=== PATIENT | male | born 1950 | race Caucasian/White ===

== ENCOUNTER → 2016-08-27 | Outpatient (CLI) | payer MEDICARE, OTHER | END | disposition home or self-care (01) | LOC: CFH 10:32 | PROVIDERS: ATTEND Internal Medicine | DX: Z12.2 Encounter for screening for malignant neoplasm of respiratory organs (principal); I25.10 Atherosclerotic heart disease of native coronary artery without angina pectoris; Z72.0 Tobacco use; Z87.891 Personal history of nicotine dependence | CPT/HCPCS: G0297 ==

== ENCOUNTER 2018-06-04 09:29 | Emergency (ER) | payer MEDICARE, OTHER ==
[~2018-06-04] VITALS: Ht 170.2 cm; Wt 86.0 kg
--- NOTE | 2018-06-04 09:39 | NUR ---
PT TO THE LOBBY TO WAIT FOR ROOM ASSIGNMENT. VSS. PT IS AMBULATORY WITHOUT ASSIST AND SPEAKING IN FULL SENTENCES, ABLE TO CLEAR HIS OWN SECRETIONS.
--- NOTE | 2018-06-04 09:54 | NUR ---
Pt presents for being unable to swallow since eating chicken at dinner last night. Pt states had similar episode ~1 year ago but resolved after several hours. Pt denies SOB. NAD at this time.
[2018-06-04] MEDS ORDERED: PROPOFOL 10 MG/ML, 20ML IVP ONE (10:00)
[2018-06-04] MEDS ORDERED: SODIUM CHLORIDE FLUSH 10ML SYR IVF ONE (10:00)
--- NOTE | 2018-06-04 10:04 | NUR ---
lm for dr maradiaga with [facility] to call dr javed. spoke with umang in endo and made her aware of pt.
--- NOTE | 2018-06-04 10:09 | NUR ---
dr maradiaga returned call to dr javed
--- NOTE | 2018-06-04 10:10 | NUR ---
called [facility]ie and spoke with umang to make her aware that dr maradiaga will be in in about an hour to scope.
[2018-06-04] MEDS ORDERED: MIDAZOLAM 1 MG/ML, 5ML ONE (10:45)
[2018-06-04] MEDS ORDERED: FENTANYL PF 100 MCG/2ML ONE (10:45)
--- NOTE | 2018-06-04 11:00 | NUR ---
ASSUMED CARE OF PT FROM [facility]GL[facility] SARKAR. PT MOVED FROM ROOM 28 TO TRAUMA 3 FOR PROCEDURAL SEDATION. PLEASE REFER TO PROCEDURAL SEDATION PACKET FOR NTES AND VITALS.
[2018-06-04] MEDS ORDERED: PROPOFOL 10 MG/ML, 20ML ONE (11:02)
[2018-06-04 12:59] VITALS: BP 135/75
== END 2018-06-04 13:02 | disposition home or self-care (01) ==
LOC: ED 10:30
DX: T18.128A Food in esophagus causing other injury, initial encounter (principal); E78.00 Pure hypercholesterolemia, unspecified; I10 Essential (primary) hypertension; E11.9 Type 2 diabetes mellitus without complications; X58.XXXA Exposure to other specified factors, initial encounter; Y93.89 Activity, other specified; Y92.89 Other specified places as the place of occurrence of the external cause; Y99.8 Other external cause status
CPT/HCPCS: 88305; 88342; 99152; 99285; J2250; J3010

== ENCOUNTER 2019-07-01 13:38 | Inpatient (IN) | payer MEDICARE, OTHER ==
[~2019-07-01] VITALS: Ht 170.2 cm; Wt 87.8 kg
[2019-07-01 14:28] LABS: ALBUMIN 3.8 g/dL (3.4-5.0); ANION GAP 12 mmol/L (5-15); CALCIUM 9.2 mg/dL (8.5-10.1); CHLORIDE 102 mmol/L (98-107)
--- NOTE | 2019-07-01 14:33 | NUR ---
PT AMBULATORY TO RADIOLOGY. NAD. WILL RETURN TO T1 AFTER SCAN.
[2019-07-01 14:34] LABS: ALANINE AMINOTRANSFERASE 56 U/L (12-78); ALKALINE PHOSPHATASE 82 U/L (45-117); BILIRUBIN,TOTAL 0.5 mg/dL (0.2-1.0); CREATININE 1.81 mg/dL (0.7-1.3); TOTAL PROTEIN 7.8 g/dL (6.4-8.2)
[2019-07-01 14:38] LABS: MICROSCOPIC AUTO
[2019-07-01 14:39] LABS: CULTURE INDICATED? NO
--- NOTE | 2019-07-01 14:55 | NUR ---
PT CAME IN CO OF LEFT FLANK PAIN. DENIES TRAUMA. STARTED AROUND [address] BLOOD DRAWN. PT RESTING IN [facility]
[2019-07-01 14:58] LABS: MEAN CORPUSCULAR HEMOGLOBIN 31.1 pg (27.5-34.5); MEAN CORPUSCULAR HGB CONC 33.7 g/dL (33.2-36.2); MEAN CORPUSCULAR VOLUME 92.4 fL (81-97); MEAN PLATELET VOLUME 8.3 fL (7.4-10.4); PLATELET COUNT 178 x10^3/uL (130-400); RED BLOOD COUNT 4.74 x10^6/uL (4.38-5.82); RED CELL DISTRIBUTION WIDTH 14.2 % (9.4-14.8)
[2019-07-01 14:59] LABS: BASOPHILS % (AUTO) 0 % (0-1); EOSINOPHILS # (AUTO) 0.15 x10^3/uL (0-0.4); EOSINOPHILS % (AUTO) 1 % (1-7); LYMPHOCYTES # (AUTO) 1.39 x10^3/uL (1-3.4); LYMPHOCYTES % (AUTO) 9 % (22-44); MD SCAN; MONOCYTES # (AUTO) 0.41 x10^3/uL (0.2-0.8); MONOCYTES % (AUTO) 3 % (2-9); NEUTROPHILS % (AUTO) 88 % (42-75)
[2019-07-01] MEDS ORDERED: ONDANSETRON 2MG/ML, 2ML ONE (15:15)
[2019-07-01] MEDS ORDERED: KETOROLAC 30 MG/1 ML ONE (15:15)
[2019-07-01] MEDS ORDERED: MORPHINE SULFATE 4 MG/ML, 1ML ONE (15:16)
[2019-07-01] MEDS ORDERED: KETOROLAC 30 MG/1 ML IVPush ONE (15:30)
[2019-07-01] MEDS ORDERED: MORPHINE SULFATE 4 MG/ML, 1ML IVPush PRN (15:30)
[2019-07-01] MEDS ORDERED: ONDANSETRON 2MG/ML, 2ML IVPush ONE (15:30)
--- NOTE | 2019-07-01 15:55 | NUR ---
PT REPORTS "FEELING A LOT BETTER" IN REGARDS TO PAIN
[2019-07-01] MEDS ORDERED: KETOROLAC 30 MG/1 ML IM ONE (16:30)
[2019-07-01] MEDS ORDERED: SODIUM CHLORIDE 0.9% 1,000 ML IV ONE (16:38)
[2019-07-01] MEDS ORDERED: ONDANSETRON 2MG/ML, 2ML IVPush PRN (17:00)
[2019-07-01] MEDS ORDERED: HYDROmorphone 1 MG/ML, 1ML INJ IVPush PRN (17:00)
[2019-07-01] MEDS ORDERED: SODIUM CHLORIDE FLUSH 10ML SYR IVF PRN (17:00)
--- NOTE | 2019-07-01 17:06 | NUR ---
PT RESTING IN [facility]. AWAITING ADM ORDERED
[2019-07-01 18:03] VITALS: BP 161/78
[2019-07-01] MEDS ORDERED: POLYETHYLENE GLYCOL 17 GM PACKET PO PRN (18:30)
[2019-07-01] MEDS ORDERED: BISACODYL 10 MG SUPP PR PRN (18:30)
[2019-07-01] MEDS ORDERED: DOCUSATE 100 MG CAPSULE PO PRN (18:30)
[2019-07-01] MEDS ORDERED: ACETAMINOPHEN 325 MG TABLET PO PRN (18:30)
[2019-07-01] MEDS ORDERED: KETOROLAC 30 MG/1 ML IV PRN (18:30)
[2019-07-01] MEDS: SODIUM CHLORIDE 0.9% 1,000 ML IV SCH (18:46)
[2019-07-01] MEDS ORDERED: DEXTROSE 4 GM TAB.CHEW PO PRN (19:00)
[2019-07-01] MEDS ORDERED: DEXTROSE 50%, 50ML SYRINGE IVPush PRN (19:00)
[2019-07-01] MEDS ORDERED: GLUCAGON 1 MG IM PRN (19:00)
[2019-07-01] MEDS: SODIUM CHLORIDE FLUSH 10ML SYR IVF SCH (21:00)
[2019-07-01 21:39] VITALS: BP 118/74
[2019-07-01] MEDS: morphine SULFATE 10 MG/ML, 1ML IVPush PRN (22:06)
[2019-07-01] MEDS: ONDANSETRON 2MG/ML, 2ML IVPush PRN (22:06)
[2019-07-01] MEDS: INSULIN LISPRO 100 UNITS/ML, PEN SQ-INSULIN SCH (22:07)
[2019-07-02 01:59] VITALS: BP 117/75
[2019-07-02 06:40] LABS: BASOPHILS # (AUTO) 0.03 x10^3/uL (0-0.1); BASOPHILS % (AUTO) 0 % (0-1); EOSINOPHILS % (AUTO) 8 % (1-7); LYMPHOCYTES # (AUTO) 3.12 x10^3/uL (1-3.4); LYMPHOCYTES % (AUTO) 29 % (22-44); MD NO; MEAN CORPUSCULAR VOLUME 93.8 fL (81-97); MEAN PLATELET VOLUME 7.4 fL (7.4-10.4); MONOCYTES # (AUTO) 0.75 x10^3/uL (0.2-0.8); MONOCYTES % (AUTO) 7 % (2-9); NEUTROPHILS # (AUTO) 6.12 x10^3/uL (1.8-6.8); NEUTROPHILS % (AUTO) 56 % (42-75); PLATELET COUNT 200 x10^3/uL (130-400); RED BLOOD COUNT 4.16 x10^6/uL (4.38-5.82); RED CELL DISTRIBUTION WIDTH 14.4 % (9.4-14.8)
[2019-07-02 06:48] LABS: ANION GAP 6 mmol/L (5-15); CALCIUM 8.3 mg/dL (8.5-10.1); CHLORIDE 106 mmol/L (98-107); CREATININE 1.76 mg/dL (0.7-1.3)
[2019-07-02] MEDS ORDERED: PRED5TAB19 PO (06:48)
[2019-07-02] MEDS ORDERED: ABAT125S INJ (06:57)
[2019-07-02] MEDS ORDERED: LISI-420 PO (06:58)
[2019-07-02] MEDS ORDERED: [UNRECOGNIZED DRUG - CODE] PO (06:59)
[2019-07-02] MEDS: INSULIN LISPRO 100 UNITS/ML, PEN SQ-INSULIN SCH ×4 (07:00→22:41)
[2019-07-02] MEDS ORDERED: ATOR20TA86 PO (07:00)
[2019-07-02] MEDS ORDERED: TAMS-11 PO (07:00)
[2019-07-02] MEDS ORDERED: METF500S5 PO (07:00)
[2019-07-02] MEDS ORDERED: TRAM100C3 PO (07:02)
[2019-07-02] MEDS ORDERED: [UNRECOGNIZED DRUG - CODE] PO (07:02)
[2019-07-02] MEDS ORDERED: MELO10PO PO (07:03)
[2019-07-02] MEDS ORDERED: LEVO1CAP3 PO (07:03)
[2019-07-02] MEDS ORDERED: PANT40GR PEG (07:04)
[2019-07-02] MEDS ORDERED: METH1POW21 PO (07:05)
[2019-07-02 08:28] VITALS: BP 102/70
[2019-07-02] MEDS: SODIUM CHLORIDE 0.9% 1,000 ML IV SCH (08:41)
[2019-07-02] MEDS: morphine SULFATE 10 MG/ML, 1ML IVPush PRN (08:42)
[2019-07-02] MEDS: AMLODIPINE 5 MG TABLET PO SCH (08:42)
[2019-07-02] MEDS: SODIUM CHLORIDE FLUSH 10ML SYR IVF SCH ×2 (08:48→20:23)
[2019-07-02] MEDS ORDERED: LISINOPRIL 20 MG TABLET PO SCH (09:00)
[2019-07-02] MEDS ORDERED: EPHEDRINE 50 MG/ML, 1ML ONE (10:36)
[2019-07-02 12:58] VITALS: BP 106/69
[2019-07-02] MEDS ORDERED: FENTANYL PF 250 MCG/5ML ONE (15:23)
[2019-07-02] MEDS ORDERED: MIDAZOLAM 1 MG/ML, 2ML ONE (15:23)
[2019-07-02] MEDS ORDERED: DEXAMETHASONE 4 MG/ML, 1ML ONE (15:25)
[2019-07-02] MEDS ORDERED: PROPOFOL 10 MG/ML, 20ML ONE (15:25)
[2019-07-02] MEDS ORDERED: ROCURONIUM 10MG/ML,5ML ONE (15:25)
[2019-07-02] MEDS ORDERED: SUCCINYLCHOLINE 20 MG/ML, 10ML ONE (15:25)
[2019-07-02] MEDS ORDERED: LABETALOL 5MG/ML, 20ML IV PRN (16:00)
[2019-07-02] MEDS ORDERED: ALBUTEROL SULFATE 2.5 MG/3 ML NPPB PRN (16:00)
[2019-07-02] MEDS ORDERED: DIAZEPAM 5 MG/ML, 2ML IVPush PRN (16:00)
[2019-07-02] MEDS ORDERED: ONDANSETRON ODT 8 MG PO PRN (16:00)
[2019-07-02] MEDS ORDERED: ONDANSETRON 2MG/ML, 2ML IV PRN ×2 (16:00→19:30)
[2019-07-02] MEDS ORDERED: MIDAZOLAM 1 MG/ML, 2ML IV PRN (16:00)
[2019-07-02] MEDS ORDERED: hydrALAzine 20 MG/ML, 1ML IV PRN (16:00)
[2019-07-02] MEDS ORDERED: HALOPERIDOL 5 MG/ML IV PRN (16:00)
[2019-07-02] MEDS ORDERED: PROMETHAZINE 25 MG/ML, 1ML IV PRN (16:00)
[2019-07-02] MEDS ORDERED: OXYcodone 5 MG/5 ML ORAL.SOL UDC PO PRN (16:00)
[2019-07-02] MEDS ORDERED: HYDROmorphone 2 MG/ML, 1ML IVPush PRN (16:00)
[2019-07-02] MEDS ORDERED: ACETAMINOPHEN 325 MG TABLET PO PRN (16:00)
[2019-07-02] MEDS ORDERED: PROMETHAZINE 12.5 MG SUPP PR PRN (16:00)
[2019-07-02] MEDS ORDERED: EPHEDRINE 50 MG/ML, 1ML IVPush PRN (16:00)
[2019-07-02] MEDS ORDERED: MEPERIDINE/PF 25MG/ML,1ML IVPush PRN (16:00)
[2019-07-02] MEDS ORDERED: OMNIPAQUE 350 MG/ML, 50 ML BOTTLE ONE (16:55)
[2019-07-02] MEDS ORDERED: OXYcodone 5 MG/5 ML ORAL.SOL UDC ONE (17:19)
[2019-07-02] MEDS ORDERED: FENTANYL PF 100 MCG/2ML ONE (17:19)
[2019-07-02] MEDS: FENTANYL PF 100 MCG/2ML IV PRN ×2 (17:23→17:36)
[2019-07-02] MEDS ORDERED: LACTATED RINGERS 1,000 ML IV SCH ×2 (19:30→21:30)
[2019-07-02 20:18] VITALS: BP 124/67
[2019-07-02] MEDS: ONDANSETRON 2MG/ML, 2ML IVPush PRN (20:22)
[2019-07-02] MEDS ORDERED: ARTIFICIAL TEARS 15 DROP/ML BOTTLE EACHEYE SCH (21:00)
[2019-07-02] MEDS ORDERED: GABAPENTIN 400 MG CAPSULE PO SCH (21:00)
[2019-07-02] MEDS ORDERED: ATORVASTATIN 40 MG TABLET PO SCH (21:00)
[2019-07-02] MEDS: HYDROcodone/APAP 5/325 TABLET PO PRN (22:41)
[2019-07-03 01:26] VITALS: BP 105/66
[2019-07-03] MEDS: METFORMIN MC SCH ×2 (01:30→10:13)
[2019-07-03] MEDS: HYDROcodone/APAP 5/325 TABLET PO PRN (04:47)
[2019-07-03] MEDS ORDERED: PANTOPROZOLE 40MG TABLET PO SCH (06:00)
[2019-07-03 06:24] LABS: MEAN CORPUSCULAR HEMOGLOBIN 31.2 pg (27.5-34.5); MEAN CORPUSCULAR HGB CONC 33.6 g/dL (33.2-36.2); MEAN CORPUSCULAR VOLUME 92.9 fL (81-97); MEAN PLATELET VOLUME 7.7 fL (7.4-10.4); PLATELET COUNT 206 x10^3/uL (130-400); RED BLOOD COUNT 4.17 x10^6/uL (4.38-5.82); RED CELL DISTRIBUTION WIDTH 13.8 % (9.4-14.8)
[2019-07-03] MEDS ORDERED: METH2.5T PO (06:28)
[2019-07-03 06:35] LABS: ANION GAP 8 mmol/L (5-15); CALCIUM 8.4 mg/dL (8.5-10.1); CHLORIDE 103 mmol/L (98-107); CREATININE 1.44 mg/dL (0.7-1.3)
[2019-07-03 07:03] LABS: BASOPHILS # (AUTO) 0.01 x10^3/uL (0-0.1); BASOPHILS % (AUTO) 0 % (0-1); EOSINOPHILS % (AUTO) 0 % (1-7); LYMPHOCYTES # (AUTO) 1.09 x10^3/uL (1-3.4); LYMPHOCYTES % (AUTO) 8 % (22-44); MD SCAN; MONOCYTES # (AUTO) 0.39 x10^3/uL (0.2-0.8); MONOCYTES % (AUTO) 3 % (2-9); NEUTROPHILS # (AUTO) 12.52 x10^3/uL (1.8-6.8); NEUTROPHILS % (AUTO) 89 % (42-75)
[2019-07-03] MEDS ORDERED: metFORMIN 500 MG TABLET PO SCH (08:00)
[2019-07-03 08:04] VITALS: BP 132/78
[2019-07-03] MEDS ORDERED: TAMSULOSIN 0.4 MG CAP.ER.24H PO SCH (09:00)
[2019-07-03] MEDS ORDERED: LINAGLIPTIN 5 MG TAB PO SCH (09:00)
[2019-07-03] MEDS ORDERED: ATORVASTATIN 40 MG TABLET PO SCH (09:00)
[2019-07-03] MEDS ORDERED: LISINOPRIL 40 MG TABLET PO SCH (09:00)
[2019-07-03] MEDS ORDERED: JARDIANCE (EMPAGLIFLOZIN) 25 MG TABLET HOMEMEDPO SCH (09:00)
[2019-07-03] MEDS ORDERED: DULOXETINE 30 MG CAPSULE.DR PO SCH (09:00)
[2019-07-03] MEDS ORDERED: LOSARTAN 100 MG TAB PO SCH (09:00)
[2019-07-03] MEDS ORDERED: ALLOPURINOL 300 MG TABLET PO SCH (09:00)
[2019-07-03] MEDS ORDERED: POLYETHYLENE GLYCOL 17 GM PACKET PO SCH (09:30)
[2019-07-03] MEDS ORDERED: PHENAZOPYRIDINE 200 MG TABLET PO PRN (09:30)
[2019-07-03] MEDS: AMLODIPINE 5 MG TABLET PO SCH (10:12)
[2019-07-03] MEDS: INSULIN LISPRO 100 UNITS/ML, PEN SQ-INSULIN SCH (10:13)
[2019-07-03] MEDS ORDERED: PHEN-418 PO (12:29)
[2019-07-03] MEDS ORDERED: HYDR-3240 PO (12:29)
== END 2019-07-03 12:50 | disposition home or self-care (01) | DRG 660 ==
LOC: ED 15:17 → EDIP 16:38 → 4EST 17:57 → DCLOUNGE 07-03 12:21
PROVIDERS: ADMIT Hospitalist; ATTEND Hospitalist
PROC: 0TC78ZZ Extirpation of Matter from Left Ureter, Via Natural or Artificial Opening Endoscopic (ICD-10-PCS; principal; 2019-07-01)
PROC: 0T778DZ Dilation of Left Ureter with Intraluminal Device, Via Natural or Artificial Opening Endoscopic (ICD-10-PCS; 2019-07-01)
PROC: BT1F1ZZ Fluoroscopy of Left Kidney, Ureter and Bladder using Low Osmolar Contrast (ICD-10-PCS; 2019-07-01)
DX: N13.2 Hydronephrosis with renal and ureteral calculous obstruction (principal); E87.1 Hypo-osmolality and hyponatremia; N17.9 Acute kidney failure, unspecified; D72.829 Elevated white blood cell count, unspecified; E11.40 Type 2 diabetes mellitus with diabetic neuropathy, unspecified; F12.90 Cannabis use, unspecified, uncomplicated; I10 Essential (primary) hypertension; M06.9 Rheumatoid arthritis, unspecified; M10.9 Gout, unspecified; E11.65 Type 2 diabetes mellitus with hyperglycemia; N40.0 Benign prostatic hyperplasia without lower urinary tract symptoms; Z80.1 Family history of malignant neoplasm of trachea, bronchus and lung; Z87.891 Personal history of nicotine dependence; Z72.89 Other problems related to lifestyle
CPT/HCPCS: 36415; 74176; 74420; 80048; 80053; 81001; 82360; 82962; 83735; 84100; 85025; 88300; 96374; G0378; J1100; J1885; J2250; J2405; J2704; J3010; Q9967; C1769; C2617; J0330; J1815; J2270; J7030; J7512